=== PATIENT | male | born 1975 | race Caucasian/White ===

== ENCOUNTER 2024-04-14 22:11 | Emergency (ER) | payer BC ==
[~2024-04-14] VITALS: Ht 177.8 cm; Wt 86.0 kg
[~2024-04-14 22:11] MED LIST: ADDERALL10 MG PO; AMOXICILLIN500 MG PO; AUGMENTIN875TAB PO; BACTRIM DS1 TAB PO; BACTROBAN2 % EX; CEPHALEXIN500 MG OR; EFFEXOR XR75 MG PO; EFFEXOR75 MG OR; IBUPROFEN600 MG PO; LORTAB 5 OR; LORTAB 5/3255 MG PO; NAPROSYN500 MG PO; NO HOME MEDS; RESTORIL15 M1 OR; ROBITUSSIN AC10 ML OR; ROBITUSSIN AC10 ML PO; XANAX1 MG PO; ZITHROMAX250 MG PO
[2024-04-14 23:24] LABS: BASO% 0.7 % (0-3); EOS% 4.2 % (0-8); HEMATOCRIT 43.2 % (39.0-50.0); IMMATURE GRANULOCYTES 0.8 % (0.0-5.0); MEAN CORPUSCULAR HGB 29.1 pG CALC (26.0-32.0); MONO% 8.7 % (2-13); NEUT# 4.84 thou/uL (1.82-7.42); NEUT% 56.6 % (42-76); RED BLOOD COUNT 5.06 mill/uL (4.70-6.10); RED CELL DISTRI WIDTH 12.1 % (11.5-15.5)
[2024-04-14 23:29] LABS: HEMOGLOBIN 14.7 g/dl (14.0-18.0); MEAN CELL VOLUME 85.4 fL CALC (80.0-100.0)
[2024-04-14 23:57] VITALS: BP 146/98
== END 2024-04-15 00:13 | disposition home or self-care (01) | DRG 179 ==
LOC: ED 22:11
PROVIDERS: Family Medicine
DX: U07.1 COVID-19 (principal); R05.9 Cough, unspecified; R09.81 Nasal congestion; I10 Essential (primary) hypertension